=== PATIENT | male | born 1955 | race Caucasian/White ===

== ENCOUNTER 2022-11-24 12:15 | Emergency (ER) | payer OTHER ==
[2022-11-24] MEDS ORDERED: ACETAMINOPHEN 500 MG TABLET (FP) PO ONE (12:35)
[2022-11-24] MEDS ORDERED: LIDOCAINE 5% TOPICAL PATCH TP ONE (12:35)
[2022-11-24] MEDS ORDERED: DIPHTH,PERTUSS(ACELL),TET 0.5 ML DISP.SYRIN IM ONE ×2 (12:35→12:47)
[2022-11-24 12:44] VITALS: BP 147/75; PULSE 73; RESP 18; TEMP 99.1; BMI 28.0
[2022-11-24] MEDS ORDERED: LIDOCAINE 5% TOPICAL PATCH ONE (12:46)
[2022-11-24] MEDS ORDERED: ACETAMINOPHEN 500 MG TABLET (FP) ONE (12:46)
[2022-11-24] MEDS ORDERED: LIDOCAINE PATCH REMOVAL MC SCH (22:00)
== END 2022-11-24 14:35 | disposition home or self-care (01) ==
LOC: FER 12:15
PROC: 3E0234Z Introduction of Serum, Toxoid and Vaccine into Muscle, Percutaneous Approach (ICD-10-PCS; principal; 2022-11-24)
DX: S00.83XA Contusion of other part of head, initial encounter (principal); S60.811A Abrasion of right wrist, initial encounter; R07.81 Pleurodynia; M25.531 Pain in right wrist; W10.8XXA Fall (on) (from) other stairs and steps, initial encounter; W22.8XXA Striking against or struck by other objects, initial encounter; Y93.01 Activity, walking, marching and hiking
CPT/HCPCS: 70450-TC; 71101-TC-RT-FY; 72125-TC; 73110-TC-RT-FY; 73130-TC-RT-FY; 82962; 90715; 93005; 99285-25